=== PATIENT | male | born 1955 | race Caucasian/White ===

== ENCOUNTER 2022-02-26 02:16 | Emergency (ER) | payer MEDICARE ==
[~2022-02-26] VITALS: Ht 160 cm; Wt 70.0 kg
[2022-02-26 02:56] LABS: BASO # 0.1 10^3/uL (0.0-0.2); BASO % 0.9 % (0.0-1.0); EOS # 0.4 10^3/uL (0.0-0.5); EOS % 3.5 % (0.0-3.0); HEMATOCRIT 47.2 % (42.0-52.0); HEMOGLOBIN 14.8 g/dl (13.5-17.5); LYMPH # 3.1 10^3/uL (1.5-5.0); MEAN CORPUSCULAR HEMOGLOBIN 30.9 pg (27.0-33.0); MEAN CORPUSCULAR HGB CONC 31.4 g/dl (32.0-36.5); MEAN CORPUSCULAR VOLUME 98.5 fl (80.0-96.0); MONO % 9.6 % (2.0-8.0); NEUTROPHILS # 6.1 10^3/uL (1.5-8.5); NEUTROPHILS % 56.7 % (36.0-66.0); PLATELET COUNT, AUTOMATED 253 10^3/uL (150-450); RED BLOOD COUNT 4.79 10^6/uL (4.30-6.10); WHITE BLOOD COUNT 10.7 10^3/uL (4.0-10.0)
[2022-02-26 03:10] LABS: LIPASE 35 U/L (12-53)
[2022-02-26 03:12] LABS: ALBUMIN 4.1 G/DL (3.2-5.2); ALKALINE PHOSPHATASE 74 U/L (46-116); ALT/SGPT 26 U/L (7.0-40); AST/SGOT 23 U/L (<34); BILIRUBIN,DIRECT 0.3 MG/DL (<0.4); BILIRUBIN,TOTAL 0.9 MG/DL (0.3-1.2); BLOOD UREA NITROGEN 22 MG/DL (9-23); CALCIUM LEVEL 9.2 MG/DL (8.3-10.6); CARBON DIOXIDE LEVEL 24 MMOL/L (20-31); CHLORIDE LEVEL 107 MMOL/L (98-107); CREATININE FOR GFR 1.13 MG/DL (0.70-1.30); GLOMERULAR FILTRATION RATE > 60.0 (>49); GLUCOSE, FASTING 118 MG/DL (74-106); POTASSIUM SERUM 4.5 MMOL/L (3.5-5.1); SODIUM LEVEL 141 MMOL/L (136-145); TOTAL PROTEIN 7.5 G/DL (5.7-8.2)
[2022-02-26] MEDS ORDERED: MORPHINE 2 MG/ML 1ML VIAL IV ONE (07:40)
[2022-02-26] MEDS ORDERED: ISOVUE-370 76% 100ML VIAL As Ordered ONE (07:46)
[2022-02-26] MEDS ORDERED: KETO10TAB PO (09:32)
[2022-02-26] MEDS ORDERED: ONDA4TAB6 PO (09:32)
[2022-02-26] MEDS ORDERED: PERC5TAB12 PO (09:32)
[2022-02-26 09:41] VITALS: BP 117/60
== END 2022-02-26 09:51 | disposition home or self-care (01) ==
LOC: M ED 02:16
DX: N21.1 Calculus in urethra (principal); N28.1 Cyst of kidney, acquired; K21.9 Gastro-esophageal reflux disease without esophagitis; K63.89 Other specified diseases of intestine; K57.30 Diverticulosis of large intestine without perforation or abscess without bleeding; K42.0 Umbilical hernia with obstruction, without gangrene; K45.8 Other specified abdominal hernia without obstruction or gangrene; K57.92 Diverticulitis of intestine, part unspecified, without perforation or abscess without bleeding
CPT/HCPCS: 74177; 80048; 80076; 81000; 81015; 83605; 83690; 85025; 96374; 99284; Q9967

== ENCOUNTER → 2023-03-09 | Outpatient (CLI) | payer MEDICARE ==
[~2023-03-09] MED LIST: KETO10TAB PO; ONDA4TAB6 PO; PERC5TAB12 PO
== END ==
LOC: M PLALAB 15:52
PROVIDERS: ATTEND Physical Medicine & Rehabilitation
DX: M25.531 Pain in right wrist (principal)

== ENCOUNTER → 2023-03-11 | Outpatient (CLI) | payer MEDICARE | LOC: M PLALAB 12:04 | PROVIDERS: ATTEND Physical Medicine & Rehabilitation | DX: M47.892 Other spondylosis, cervical region (principal) ==

== ENCOUNTER → 2023-03-23 | Outpatient (CLI) | payer MEDICARE ==
[2023-03-23 11:14] LABS: HEMATOCRIT 45.2 % (42.0-52.0); HEMOGLOBIN 14.7 g/dl (13.5-17.5); MEAN CORPUSCULAR HGB CONC 32.5 g/dl (32.0-36.5); MEAN CORPUSCULAR VOLUME 95.4 fl (80.0-96.0); PLATELET COUNT, AUTOMATED 357 10^3/uL (150-450); RED BLOOD COUNT 4.74 10^6/uL (4.30-6.10); WHITE BLOOD COUNT 9.6 10^3/uL (4.0-10.0)
[2023-03-23 11:38] LABS: PROSTATIC SPECIFIC AG MONITOR 0.76 NG/ML (< 4.00)
[2023-03-23 11:42] LABS: THYROID STIMULATING HORMONE 3.828 uIU/ML (0.55-4.78); THYROXINE (T4) 9.7 UG/DL (4.5-10.9)
[2023-03-23 11:43] LABS: TESTOSTERONE 398 NG/DL (241-827)
[2023-03-23 11:50] LABS: ALBUMIN 3.6 G/DL (3.2-5.2); ALKALINE PHOSPHATASE 98 U/L (46-116); ALT/SGPT 37 U/L (7.0-40); AST/SGOT 21 U/L (<34); BILIRUBIN,TOTAL 0.6 MG/DL (0.3-1.2); BLOOD UREA NITROGEN 16 MG/DL (9-23); CARBON DIOXIDE LEVEL 27 MMOL/L (20-31); CHLORIDE LEVEL 109 MMOL/L (98-107); CHOLESTEROL LEVEL 223 MG/DL (<200); CHOLESTEROL RISK RATIO 4.86 (<5); CREATININE FOR GFR 0.95 MG/DL (0.70-1.30); GLOMERULAR FILTRATION RATE > 60.0 (>49); GLUCOSE, FASTING 100 MG/DL (74-106); HDL CHOLESTEROL 45.8 MG/DL (>40); LDL CHOLESTEROL 143.8 MG/DL (<100); NON-HDL-C 177.2 MG/DL; POTASSIUM SERUM 4.6 MMOL/L (3.5-5.1); SODIUM LEVEL 141 MMOL/L (136-145); TOTAL PROTEIN 7.2 G/DL (5.7-8.2); TRIGLYCERIDES LEVEL 167 MG/DL (<150)
[2023-03-23 11:55] LABS: HEMOGLOBIN A1c 5.6 % (4.0-6.0)
[2023-03-23 14:49] LABS: TOTAL T3 131.7 NG/DL (60.0-181.0)
== END ==
LOC: M RAD 09:58
PROVIDERS: ATTEND Family Medicine
DX: I10 Essential (primary) hypertension (principal); R53.83 Other fatigue; R97.20 Elevated prostate specific antigen [PSA]

== ENCOUNTER → 2023-06-08 | Outpatient (CLI) | payer MEDICARE ==
[2023-06-08 14:02] LABS: BASO # 0.1 10^3/uL (0.0-0.2); BASO % 1.1 % (0.0-1.0); EOS # 0.2 10^3/uL (0.0-0.5); EOS % 2.6 % (0.0-3.0); HEMATOCRIT 44.2 % (42.0-52.0); HEMOGLOBIN 14.1 g/dl (13.5-17.5); LYMPH % 22.8 % (24.0-44.0); MEAN CORPUSCULAR HEMOGLOBIN 30.8 pg (27.0-33.0); MEAN CORPUSCULAR HGB CONC 31.9 g/dl (32.0-36.5); MEAN CORPUSCULAR VOLUME 96.5 fl (80.0-96.0); MONO % 10.9 % (2.0-8.0); NEUTROPHILS # 5.5 10^3/uL (1.5-8.5); NEUTROPHILS % 61.8 % (36.0-66.0); PLATELET COUNT, AUTOMATED 380 10^3/uL (150-450); RED BLOOD COUNT 4.58 10^6/uL (4.30-6.10)
[2023-06-08 14:20] LABS: ERYTHROCYTE SEDIMENTATION RATE 46 mm/hr (0-20)
== END ==
LOC: M PLALAB 09:33
PROVIDERS: ATTEND Orthopaedic Surgery
DX: Z48.811 Encounter for surgical aftercare following surgery on the nervous system (principal)

== ENCOUNTER → 2023-12-20 | Outpatient (REF) | payer MEDICARE ==
[~2023-12-20] MED LIST changes: +ONDA-282 PO; -ONDA4TAB6 PO
[2023-12-20 18:27] LABS: BASO # 0.1 10^3/uL (0.0-0.2); BASO % 0.9 % (0.0-1.0); EOS # 0.2 10^3/uL (0.0-0.5); EOS % 2.1 % (0.0-3.0); HEMATOCRIT 46.6 % (42.0-52.0); LYMPH # 2.5 10^3/uL (1.5-5.0); LYMPH % 30.1 % (24.0-44.0); MEAN CORPUSCULAR HEMOGLOBIN 31.6 pg (27.0-33.0); MEAN CORPUSCULAR HGB CONC 32.2 g/dl (32.0-36.5); MEAN CORPUSCULAR VOLUME 98.1 fl (80.0-96.0); MONO # 0.6 10^3/uL (0.0-0.8); MONO % 7.4 % (2.0-8.0); NEUTROPHILS # 4.8 10^3/uL (1.5-8.5); NEUTROPHILS % 59.1 % (36.0-66.0); PLATELET COUNT, AUTOMATED 270 10^3/uL (150-450); RED BLOOD COUNT 4.75 10^6/uL (4.30-6.10); WHITE BLOOD COUNT 8.2 10^3/uL (4.0-10.0)
[2023-12-20 18:41] LABS: ERYTHROCYTE SEDIMENTATION RATE 40 mm/hr (0-20)
[2023-12-20 18:48] LABS: URIC ACID 4.1 MG/DL (3.7-9.2)
[2023-12-20 18:49] LABS: C REACTIVE PROTEIN QUANTITATIV < 0.40 MG/DL (<1.0)
[2023-12-20 18:51] LABS: ALKALINE PHOSPHATASE 91 U/L (40-129); ALT/SGPT 49 U/L (7.0-40); AST/SGOT 22 U/L (<34); BILIRUBIN,TOTAL 0.5 MG/DL (0.3-1.2); BLOOD UREA NITROGEN 18 MG/DL (9-23); CALCIUM LEVEL 9.7 MG/DL (8.3-10.6); CARBON DIOXIDE LEVEL 29 MMOL/L (20-31); CHLORIDE LEVEL 107 MMOL/L (98-107); CREATININE FOR GFR 1.05 MG/DL (0.70-1.30); GLOMERULAR FILTRATION RATE > 60.0 (>49); GLUCOSE, FASTING 123 MG/DL (74-106); POTASSIUM SERUM 4.9 MMOL/L (3.5-5.1); SODIUM LEVEL 144 MMOL/L (136-145); TOTAL PROTEIN 7.8 G/DL (5.7-8.2)
== END ==
LOC: M SFHCRHEU 13:21
PROVIDERS: ATTEND Internal Medicine Rheumatology
DX: R52 Pain, unspecified (principal); R70.0 Elevated erythrocyte sedimentation rate; M15.9 Polyosteoarthritis, unspecified; E79.0 Hyperuricemia without signs of inflammatory arthritis and tophaceous disease; R11.0 Nausea

== ENCOUNTER → 2023-12-20 | Outpatient (CLI) | payer MEDICARE | LOC: M RAD 13:46 | PROVIDERS: ATTEND Internal Medicine Rheumatology | DX: M61.441 Other calcification of muscle, right hand (principal); M19.071 Primary osteoarthritis, right ankle and foot; R52 Pain, unspecified; R70.0 Elevated erythrocyte sedimentation rate; E79.0 Hyperuricemia without signs of inflammatory arthritis and tophaceous disease; R11.0 Nausea ==

== ENCOUNTER → 2024-05-02 | Outpatient (CLI) | payer MEDICARE ==
[2024-05-02 10:46] LABS: HEMATOCRIT 45.3 % (42.0-52.0); HEMOGLOBIN 14.9 g/dl (13.5-17.5); MEAN CORPUSCULAR HEMOGLOBIN 32.1 pg (27.0-33.0); MEAN CORPUSCULAR HGB CONC 32.9 g/dl (32.0-36.5); MEAN CORPUSCULAR VOLUME 97.6 fl (80.0-96.0); PLATELET COUNT, AUTOMATED 278 10^3/uL (150-450); RED BLOOD COUNT 4.64 10^6/uL (4.30-6.10); WHITE BLOOD COUNT 6.8 10^3/uL (4.0-10.0)
[2024-05-02 10:59] LABS: INR 1.01; PROTHROMBIN TIME 13.6 SECONDS (12.5-14.5)
[2024-05-02 11:06] LABS: ALBUMIN 3.9 G/DL (3.2-5.2); ALKALINE PHOSPHATASE 87 U/L (40-129); ALT/SGPT 76 U/L (7.0-40); AST/SGOT 37 U/L (<34); BILIRUBIN,TOTAL 0.8 MG/DL (0.3-1.2); BLOOD UREA NITROGEN 18 MG/DL (9-23); CALCIUM LEVEL 9.1 MG/DL (8.3-10.6); CARBON DIOXIDE LEVEL 27 MMOL/L (20-31); CHLORIDE LEVEL 107 MMOL/L (98-107); CHOLESTEROL LEVEL 176 MG/DL (<200); CHOLESTEROL RISK RATIO 3.73 (<5); CREATININE FOR GFR 1.05 MG/DL (0.70-1.30); GLOMERULAR FILTRATION RATE > 60.0 (>49); GLUCOSE, FASTING 105 MG/DL (74-106); HDL CHOLESTEROL 47.1 MG/DL (>40); LDL CHOLESTEROL 94.7 MG/DL (<100); NON-HDL-C 128.9 MG/DL; POTASSIUM SERUM 4.5 MMOL/L (3.5-5.1); PROSTATIC SPECIFIC AG MONITOR 0.78 NG/ML (< 4.00); SODIUM LEVEL 141 MMOL/L (136-145); TOTAL PROTEIN 7.4 G/DL (5.7-8.2); TRIGLYCERIDES LEVEL 171 MG/DL (<150)
[2024-05-02 11:08] LABS: THYROID STIMULATING HORMONE 3.773 uIU/ML (0.55-4.78)
[2024-05-02 11:09] LABS: TESTOSTERONE 328 NG/DL (241-827)
[2024-05-02 11:40] LABS: HEMOGLOBIN A1c 5.2 % (4.0-6.0)
== END ==
LOC: M RAD 09:39 → M LAB 09:39
PROVIDERS: ATTEND Family Medicine
DX: R53.83 Other fatigue (principal); I10 Essential (primary) hypertension; E03.9 Hypothyroidism, unspecified; M54.50 Low back pain, unspecified; Z79.01 Long term (current) use of anticoagulants; R97.20 Elevated prostate specific antigen [PSA]

== ENCOUNTER 2024-05-21 10:29 | Emergency (ER) | payer MEDICARE ==
[~2024-05-21] VITALS: Ht 160 cm; Wt 74.8 kg
[2024-05-21] MEDS ORDERED: DOXY100C3 (10:42)
[2024-05-21] MEDS ORDERED: TRAM50TA2 (10:42)
[2024-05-21] MEDS ORDERED: ASPI-164 (10:42)
[2024-05-21] MEDS ORDERED: MELO7.5T35 (10:42)
[2024-05-21] MEDS: PERCOCET 5MG/325MG TAB PO ONE (12:47)
[2024-05-21 14:11] VITALS: BP 122/64; TEMP 98; O2SAT 99
== END 2024-05-21 14:12 | disposition home or self-care (01) ==
LOC: M ED 10:29
DX: M18.11 Unilateral primary osteoarthritis of first carpometacarpal joint, right hand (principal); M25.541 Pain in joints of right hand; Z79.1 Long term (current) use of non-steroidal anti-inflammatories (NSAID); Z79.2 Long term (current) use of antibiotics; Z79.899 Other long term (current) drug therapy